=== PATIENT | male | born 1995 | race Hispanic/Latino ===

== ENCOUNTER 2019-05-28 09:31 | Emergency (ER) | payer BC ==
--- NOTE | 2019-05-28 11:00 | ULT ---
TESTICULAR ULTRASOUND WITH DOPPLER: Date: 05/28/19 HISTORY: Right-sided testicular pain. COMPARISON: None. FINDINGS: The echotexture of both testicles is normal. Adequate vascular flow to both testicles which is symmet ghislaine. No mass. Small right epididymal head cyst. Small varicoceles, slightly larger on the left. The right testicle measures 4.4 x 2.9 x 2.1 cm. The left testicle measures 4.0 x 2.0 x 2.1 cm. IMPRESSION: 1. Adequate vascular flow to both testicles without torsion. 2. No mass. 3. Small varicoceles, larger on the left. POS: [facility]
[2019-05-28 11:05] LABS: Bilirubin Negative (Negative); Blood, Urine Negative (Negative); Clarity Clear (Clear); Glucose, Urine (Dipstick) Negative (Negative); Leukocyte Negative (Negative); Nitrite Negative (Negative); Protein, Urine (Dipstick) Negative (Neg-Trace); Urobilinogen 0.2 mg/dL (Less than 2)
== END 2019-05-28 11:21 | disposition home or self-care (01) ==
LOC: SCSER 09:31
DX: N50.811 Right testicular pain (principal); F17.200 Nicotine dependence, unspecified, uncomplicated
CPT/HCPCS: 76870; 81003; 93976

== ENCOUNTER 2020-01-21 15:14 | Outpatient (CLI) | payer BC ==
--- NOTE | 2020-01-21 17:07 | MRI ---
MRI THORACIC SPINE WITHOUT CONTRAST: 01/21/20 INDICATIONS: Thoracic spine. Thoracic radiculopathy. FINDINGS: Motion artifact degrades the exam. The thoracic vertebrae maintain normal height and alignment. There is no evidence of vertebral body e eliecer or compression. Small end plate deformities are seen consistent with small nodes at T6, T7, T8, T9, T10 and T11. Mild disc bulge paracentrally on the right at T3-4 mildly flattens the anterior thecal sac on the rig ht. Mild disc bulge at T7-8 produces minimal effacement of the anterior subarachnoid space. No cord impin gement or central canal stenosis. There is signal in the midline of the anterior spinal canal just superior to the T11-12 disc best [place] reciated on axial T2 images. Small extruded discs with superior migration from the T11-12 disc space is suggested. This effaces the anterior subarachnoid space. No significant cord impingement. No other abnormal disc bulge or protrusion. Cord signal appears normal although evaluation of the T2 sagittal images are degraded from motion. IMPRESSION: 1. Focal signal in the midline of the anterior spinal canal just above the T11-12 disc is seen. This may represent small disc fragment with superior migration from the T11-12 disc space. Postmyelog estefania CT may be of benefit if surgery is contemplated. 2. Mild disc bulge at the levels described above. POS: [facility]
== END 2020-01-21 15:15 | disposition home or self-care (01) ==
LOC: TBSIIMAG 15:14
PROVIDERS: ATTEND Surgery
DX: M51.14 Intervertebral disc disorders with radiculopathy, thoracic region (principal)
CPT/HCPCS: 72146

== ENCOUNTER 2021-05-13 22:46 | Emergency (ER) | payer BC, SELFPAY ==
[2021-05-13 23:47] LABS: #Basophils 0.1 thou/uL (0.0-0.2); #Eosinphils 0.5 thou/uL (0.0-0.7); #Lymphocytes 3.3 thou/uL (1.20-3.40); #Monocytes 0.7 thou/uL (0.11-0.59); #Neutrophils 5.8 thou/uL (1.40-6.50); %Basophils 0.6 % (0.0-1.0); %Eosinophils 4.4 % (0.0-10.0); %Lymphocytes 31.9 % (21.0-51.0); %Monocytes 6.7 % (0.0-10.0); %Neutrophils 56.5 % (42.0-75.0); Hemoglobin 14.6 g/dL (14.0-18.0); Mean Corpuscular HGB CONC 33.4 g/dL (32.0-36.0); Mean Corpuscular Hemoglobin 29.4 pg (27.0-31.0); Mean Platelet Volume 8.9 fL (7.4-10.4); Platelet Count 227 thou/uL (130-400); RBC Distribution Width 11.8 % (11.5-14.5); Red Blood Cell (RBC) Count 4.97 mill/uL (4.70-6.10); White Blood Cell (WBC) Count 10.3 thou/uL (4.8-10.8)
[2021-05-13 23:58] LABS: PTT 30.8 sec (22.9-36.1)
[2021-05-14 00:11] LABS: ALT (SGPT) 34 U/L (8-55); AST (SGOT) 22 U/L (5-34); Albumin 4.2 g/dL (3.5-5.0); Alkaline Phosphatase 107 U/L (40-110); Anion Gap 14 mmol/L (10-20); BUN (Urea Nitrogen) 17 mg/dL (8.9-20.6); Bilirubin, Total 0.2 mg/dL (0.2-1.2); Calc. Creatinine Clearance 0 mL/min (70-130); Calcium 9.2 mg/dL (7.8-10.44); Carbon Dioxide 24 mmol/L (22-29); Chloride 107 mmol/L (98-107); Glucose 117 mg/dL (70-105); Potassium 4.1 mmol/L (3.5-5.1); Protein, Total 7.2 g/dL (6.0-8.3); Sodium 141 mmol/L (136-145)
== END 2021-05-14 01:12 | disposition home or self-care (01) ==
LOC: ERS 22:46
DX: I48.91 Unspecified atrial fibrillation (principal); J45.909 Unspecified asthma, uncomplicated; Z87.891 Personal history of nicotine dependence
CPT/HCPCS: 80053; 84484; 85025; 85610; 85730; 93005

== ENCOUNTER 2021-08-16 00:23 | Emergency (ER) | payer SELFPAY ==
[2021-08-16] MEDS ORDERED: Lidocaine Viscous Sol 2% 15 ml UD Cup ONE (00:53)
[2021-08-16] MEDS ORDERED: Famotidine 20 MG TAB ONE (00:53)
[2021-08-16] MEDS ORDERED: Mag-Al 1200 mg/1200 mg/30 ML UDCUP ONE (00:53)
[2021-08-16 00:56] LABS: #Basophils 0.1 thou/uL (0.0-0.2); #Eosinphils 0.3 thou/uL (0.0-0.7); #Lymphocytes 2.6 thou/uL (1.20-3.40); #Monocytes 0.6 thou/uL (0.11-0.59); #Neutrophils 4.6 thou/uL (1.40-6.50); %Eosinophils 3.7 % (0.0-10.0); %Lymphocytes 31.6 % (21.0-51.0); %Monocytes 7.3 % (0.0-10.0); %Neutrophils 56.4 % (42.0-75.0); Hemoglobin 14.5 g/dL (14.0-18.0); Mean Corpuscular HGB CONC 34.2 g/dL (32.0-36.0); Mean Corpuscular Hemoglobin 30.6 pg (27.0-31.0); Mean Corpuscular Volume 89.4 fL (78.0-98.0); Mean Platelet Volume 8.2 fL (7.4-10.4); Platelet Count 207 thou/uL (130-400); RBC Distribution Width 11.7 % (11.5-14.5); Red Blood Cell (RBC) Count 4.73 mill/uL (4.70-6.10); White Blood Cell (WBC) Count 8.2 thou/uL (4.8-10.8)
[2021-08-16 01:21] LABS: ALT (SGPT) 38 U/L (8-55); AST (SGOT) 31 U/L (5-34); Albumin 4.3 g/dL (3.5-5.0); Alkaline Phosphatase 101 U/L (40-110); Anion Gap 13 mmol/L (10-20); BUN (Urea Nitrogen) 18 mg/dL (8.9-20.6); Bilirubin, Total 0.2 mg/dL (0.2-1.2); Calc. Creatinine Clearance 0 mL/min (70-130); Calcium 9.4 mg/dL (7.8-10.44); Carbon Dioxide 25 mmol/L (22-29); Chloride 104 mmol/L (98-107); Globulin 2.8 g/dL (2.4-3.5); Glucose 110 mg/dL (70-105); Protein, Total 7.1 g/dL (6.0-8.3); Sodium 138 mmol/L (136-145)
== END 2021-08-16 02:31 | disposition home or self-care (01) ==
LOC: ERS 00:23
DX: K21.9 Gastro-esophageal reflux disease without esophagitis (principal); J45.909 Unspecified asthma, uncomplicated; R00.0 Tachycardia, unspecified; Z87.891 Personal history of nicotine dependence; Z79.01 Long term (current) use of anticoagulants
CPT/HCPCS: 36415; 71045; 80053; 84484; 85025; 93005; 94760